=== PATIENT | female | born 1980 | race Two or more races ===

== ENCOUNTER 2020-09-04 08:47 | Outpatient (CLI) | payer OTHER | END 2020-09-04 08:59 | disposition home or self-care (01) | LOC: RX STUDY 08:47 | PROVIDERS: ATTEND Obstetrics & Gynecology | DX: N89.8 Other specified noninflammatory disorders of vagina (principal); N73.6 Female pelvic peritoneal adhesions (postinfective); N70.91 Salpingitis, unspecified ==